=== PATIENT | female | born 1990 | race Caucasian/White ===

== ENCOUNTER 2016-11-15 12:54 | Inpatient (IN) | payer OTHER ==
[2016-11-15 14:53] VITALS: BMI 32.9
--- NOTE | 2016-11-15 16:32 | HP ---
COWS - Scale Resting Pulse: 1= [place] 81-100 Sweatin=Flushed/Facial Moisture Restless Observation: 1= Difficult to Sit Still Pupil Size: 1= Pupils >than Normal Bone or Joint Aches: 2= Severe Diffuse Aches Runny Nose/ Eye Tearin= Nasal Congestion GI Upset > 30mins: 2= Nausea/Diarrhea Tremor Observation: 2= Slight Tremor Visible Yawning Observation: 0= None Anxiety or Irritability: 2=Irritable/Anxious Goose Flesh Skin: 3=Piloerection COWS Score: 17 Admission ROS BHS - HPI Chief Complaint: I need to get off opioids and i need help. History of Present Illness: 25 y/o f pt with h/o opioid dep seeking detox. Exam Limitations: No Limitations - Ebola screening Have you traveled outside of the country in the last 21 days: No Have you had contact with anyone from an Ebola affected area: No Have you been sick,other than usual withdrawal symptoms: No Do you have a fever: No - Review of Systems Constitutional: Loss of Appetite, Malaise, Night Sweats, Changes in sleep, Unintentional Wgt. Loss (15 -20 lbs wt loss x 1 month) EENT: reports: Nose Congestion, Other (has corrective lenses with her) Respiratory: reports: No Symptoms reported Cardiac: reports: No Symptoms Reported GI: reports: Nausea, Poor Appetite, Indigestion : reports: No Symptoms Reported Musculoskeletal: reports: Muscle Pain Integumentary: reports: No Symptoms Reported Neuro: reports: Headache Endocrine: reports: No Symptoms Reported Hematology: reports: No Symptoms Reported Psychiatric: reports: Agitated, Anxious, Depressed Other Systems: Reviewed and Negative Patient History - Patient Medical History Hx Anemia: No Hx Asthma: No Hx Chronic Obstructive Pulmonary Disease (COPD): No Hx Cancer: No Hx Cardiac Disorders: No Hx Congestive Heart Failure: No Hx Hypertension: No Hx Hypercholesterolemia: No Hx Pacemaker: No HX Cerebrovascular Accident: No Hx Seizures: No Hx Dementia: No Hx Diabetes: No Hx Gastrointestinal Disorders: No Hx Liver Disease: No Hx Genitourinary Disorders: No Hx Sexually Transmitted Disorders: No Hx Renal Disease (ESRD): No Hx Thyroid Disease: No Hx Human Immunodeficiency Virus (HIV): Yes (negative 2014) Hx Hepatitis C: No Hx Depression: Yes (anxiety) Hx Suicide Attempt: Yes (cutter ) Hx Bipolar Disorder: No Hx Schizophrenia: No - Patient Surgical History Hx Section: Yes (x 2 ) Other Surgical History: 2008- s/p bariatric surgery Anesthesia Reaction: No - PPD History Previous Implant?: Yes Documented Results: Positive w/o proof PPD to be Administered?: No - Reproductive History Patient is a Female of Child Bearing Age (11 -55 yrs old): Yes Last Menstrual Period: 10/30/16 Patient : No - Smoking Cessation Smoking history: Never smoked Have you smoked in the past 12 months: No Aproximately how many cigarettes per day: 0 Cigars Per Day: 0 Hx Chewing Tobacco Use: No Initiated information on smoking cessation: No 'Breaking Loose' booklet given: 11/15/16 - Substance & Tx. History Hx Alcohol Use: No Hx Substance Use: Yes Substance Use Type: Opiates Hx Substance Use Treatment: No - Substances Abused percocet 10/325 Route: Oral Frequency: Daily Amount used: 5-6 /d Age of first use: 21 Date of Last Use: 11/15/16 dee dee 15 mg Route: Oral Frequency: Daily Amount used: 3-4 /d Age of first use: 22 Date of Last Use: 11/11/16 Family Disease History - Family Disease History Family History: Denies (pt was adopted) Admission Physical Exam BHS - Vital Signs Vital Signs: Vital Signs - 24 hr 11/15/16 14:47 Temperature 98.2 F Pulse Rate 99 H Respiratory 18 Rate Blood Pressure 129/76 25 y/o f pt aox3 in nad,with nasal congestion ambulating , cooperating with exam - Physical General Appearance: Yes: Tremorous, Sweating, Anxious HEENTM: Yes: EOMI, Hearing grossly Normal, Normocephalic, Normal Voice, DANNIE, Nasal Congestion Respiratory: Yes: Chest Non-Tender, Lungs Clear, Normal Breath Sounds, No Respiratory Distress Neck: Yes: Supple, Trachea in good position Breast: Yes: Breast Exam Deferred Cardiology: Yes: Regular Rhythm, Regular Rate, S1, S2 Abdominal: Yes: Non Tender, Soft, Increased Bowel Sounds Genitourinary: Yes: Within Normal Limits Back: Yes: Decreased Range of Motion Musculoskeletal: Yes: Back pain, Joint Stiffness, Muscle Pain (left posterior shoulder) Extremities: Yes: Tremors (mild) Neurological: Yes: cementer helper II-XII NML intact, Fully Oriented, Alert, Motor Strength 5/5, Normal Response Integumentary: Yes: Diaphoresis, Moist Lymphatic: Yes: Within Normal Limits - Diagnostic (1) Opioid dependence with withdrawal Current Visit: Yes Status: Chronic (2) Anxiety Current Visit: Yes Status: Chronic (3) Depression Current Visit: Yes Status: Chronic Qualifiers: Depression Type: unspecified Qualified Code(s): F32.9 - Major depressive disorder, single episode, unspecified Cleared for Admission [facility] - Detox or Rehab [facility] Level of Care: Medically Managed Detox Regimen/Protocol: Methadone [facility] Breath Alcohol Content Breath Alcohol Content: 0 Urine Pregancy Test - Result Urine Test Results: Negative- NO Line Present Urine Drug Screen - Results Drug Screen Negative: No Urine Drug Screen Results: TCA-Tricyclic Antidepress, OXY-Oxycodone
[2016-11-15] MEDS ORDERED: P-EPHED 60MG/TRIPROLIDI 2.5MG TABLET PO PRN (17:05)
[2016-11-15] MEDS ORDERED: MENTHOL/PHENOL 1 EACH UD MM PRN (17:05)
[2016-11-15] MEDS ORDERED: MAGNESIUM HYDROX 2400MG/30ML ORAL SUSPENSION 30 ML CUP PO PRN (17:05)
[2016-11-15] MEDS ORDERED: guaiFENesin/D-METHORPHAN HB 10 ML UNIT-DOSE CUPS PO PRN (17:05)
[2016-11-15] MEDS ORDERED: LOPERAMIDE HCL 2 MG CAPSULE PO PRN (17:05)
[2016-11-15] MEDS ORDERED: MAGNESIUM CITRATE 300 ML BOTTLE PO PRN (17:05)
[2016-11-15] MEDS ORDERED: METHADONE HCL 10 MG TABLET (FOR DETOX USE ONLY) PO ONE ×2 (18:15→23:00)
[2016-11-15] MEDS: diazePAM 5 MG TABLET PO PRN ×2 (18:34→23:32)
[2016-11-15] MEDS: IBUPROFEN 400 MG TABLET (FP) PO PRN (18:36)
[2016-11-15] MEDS: THIAMINE HCL 100 MG TABLET (FP) PO SCH (22:28)
[2016-11-15 22:58] LABS: URINE APPEARANCE CLEAR; URINE BILIRUBIN NEGATIVE (NEGATIVE); URINE BLOOD NEGATIVE (NEGATIVE); URINE COLOR LTYELLOW; URINE GLUCOSE (UA) NEGATIVE (NEGATIVE); URINE KETONE NEGATIVE (NEGATIVE); URINE LEUK ESTERASE NEGATIVE (NEGATIVE); URINE NITRITE NEGATIVE (NEGATIVE); URINE PROTEIN NEGATIVE (NEGATIVE); URINE UROBILINOGEN NEGATIVE E.U./dl (0.2-1.0)
[2016-11-16] MEDS: diazePAM 5 MG TABLET PO PRN ×5 (05:33→23:45)
[2016-11-16] MEDS: IBUPROFEN 400 MG TABLET (FP) PO PRN ×2 (05:33→18:01)
[2016-11-16] MEDS: MAG HYDROX/AL HYDROX/SIMETH 30 ML UNIT-DOSE CUP PO PRN ×2 (07:22→20:33)
--- NOTE | 2016-11-16 09:51 | PN ---
BHS COWS - Scale Resting Pulse: 0= [place] 80 or Below Sweatin= Chills/Flushing Restless Observation: 3= Extraneous Movement Pupil Size: 1= Pupils >than Normal Bone or Joint Aches: 2= Severe Diffuse Aches Runny Nose/ Eye Tearin= Runny Nose/Eyes GI Upset > 30mins: 3= Vomiting/Diarrhea Tremor Observation of Outstretched Hands: 2= Slight Tremor Visible Yawning Observation: 1= 1-2x During Session Anxiety or Irritability: 2=Irritable/Anxious Goose Flesh Skin: 0=Smooth Skin COWS Score: 17 S Progress Note (SOAP) Subjective: ALERT,IRRITABLE,ANXIOUS,INTERRUPTED SLEEP,TREMOR,PAIN IN THE BODY AND BACK Objective: 11/16/16 09:49 Vital Signs Temperature 97.4 F L 11/16/16 06:19 Pulse Rate 89 11/16/16 06:19 Respiratory Rate 20 11/16/16 06:19 Blood Pressure 115/70 11/16/16 06:19 O2 Sat by Pulse Oximetry (%) EKG NSR,NORMAL ECG Laboratory Last Values Urine Color Ltyellow 11/15/16 22:40 Urine Appearance Clear 11/15/16 22:40 Urine pH 6.0 (5.0-8.0) 11/15/16 22:40 Ur Specific [place] 1.020 (1.001-1.035) 11/15/16 22:40 Urine Protein Negative (NEGATIVE) 11/15/16 22:40 Urine Glucose (UA) Negative (NEGATIVE) 11/15/16 22:40 Urine Ketones Negative (NEGATIVE) 11/15/16 22:40 Urine Blood Negative (NEGATIVE) 11/15/16 22:40 Urine Nitrite Negative (NEGATIVE) 11/15/16 22:40 Urine Bilirubin Negative (NEGATIVE) 11/15/16 22:40 Urine Urobilinogen Negative E.U./dl (0.2-1.0) 11/15/16 22:40 Ur Leukocyte Esterase Negative (NEGATIVE) 11/15/16 22:40 LABS PENDING Assessment: 11/16/16 09:50 WITHDRAWAL SYMPTOM Plan: CONTINUE DETOX
[2016-11-16] MEDS ORDERED: METHADONE HCL 10 MG TABLET (FOR DETOX USE ONLY) PO ONE (10:00)
[2016-11-16] MEDS: PRENATAL VITAMINS W/ FOLIC ACID TABLET (FP) PO SCH (10:25)
[2016-11-16 10:28] LABS: MCH 28.6 pg (25.7-33.7); MCHC 32.6 g/dl (32.0-36.0); MEAN CELL VOLUME 87.7 fl (80-96); MEAN PLT VOLUME 9.1 fl (7.5-11.1); PLATELET COUNT 426 K/MM3 (134-434); RDW 15.5 % (11.6-15.6)
[2016-11-16 10:37] LABS: ALBUMIN 4.3 g/dl (3.4-5.0); CALCIUM 9.2 mg/dL (8.5-10.1)
[2016-11-16 10:44] LABS: ALK PHOS 73 U/L (45-117); ANION GAP 6 (8-16); BILIRUBIN,TOTAL 0.5 mg/dL (0.2-1.0); CO2 28 mmol/L (21-32); CREATININE 0.7 mg/dL (0.55-1.02); GLUCOSE,RANDOM 77 mg/dL (74-106); SGOT/AST 8 U/L (15-37); SGPT/ALT 17 U/L (12-78); TOT PROT 7.5 g/dl (6.4-8.2)
[2016-11-16] MEDS: CYCLOBENZAPRINE HCL 10 MG TABLET (FP) PO PRN ×2 (11:06→23:45)
[2016-11-16] MEDS: hydrOXYzine PAMOATE 25 MG CAPSULE (FP) PO PRN ×2 (11:06→20:59)
[2016-11-16] MEDS: LIDOCAINE 5% TOPICAL PATCH TP SCH (11:06)
--- NOTE | 2016-11-16 12:36 | EKG ---
Test Reason : Blood Pressure : / mmHG Vent. Rate : 084 BPM Atrial Rate : 084 BPM P-R Int : 142 ms QRS Dur : 080 ms QT Int : 376 ms P-R-T Axes : 060 030 029 degrees QTc Int : 444 ms NORMAL SINUS RHYTHM NORMAL ECG NO PREVIOUS ECGS AVAILABLE Confirmed by KALYAN REIS MD ([id number]) on 11/16/2016 12:36:05 PM Referred By: Confirmed By:KALYAN REIS MD
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
[2016-11-16] MEDS: THIAMINE HCL 100 MG TABLET (FP) PO SCH (22:36)
[2016-11-17] MEDS: diazePAM 5 MG TABLET PO PRN ×5 (03:21→23:05)
[2016-11-17] MEDS: ACETAMINOPHEN 325 MG TABLET (FP) PO PRN ×2 (03:21→14:44)
[2016-11-17] MEDS: CYCLOBENZAPRINE HCL 10 MG TABLET (FP) PO PRN ×2 (06:10→18:54)
[2016-11-17] MEDS: hydrOXYzine PAMOATE 25 MG CAPSULE (FP) PO PRN ×4 (06:10→21:33)
[2016-11-17] MEDS: METHYLPHENIDATE HCL 5 MG TABLET PO SCH ×2 (07:58→11:06)
[2016-11-17] MEDS ORDERED: METHADONE HCL 5 MG TABLET (FOR DETOX USE ONLY) PO ONE (10:00)
--- NOTE | 2016-11-17 10:00 | PN ---
S COWS - Scale Resting Pulse: 1= [place] 81-100 Sweatin= Chills/Flushing Restless Observation: 3= Extraneous Movement Pupil Size: 1= Pupils >than Normal Bone or Joint Aches: 2= Severe Diffuse Aches Runny Nose/ Eye Tearin= Runny Nose/Eyes GI Upset > 30mins: 2= Nausea/Diarrhea Tremor Observation of Outstretched Hands: 2= Slight Tremor Visible Yawning Observation: 1= 1-2x During Session Anxiety or Irritability: 2=Irritable/Anxious Goose Flesh Skin: 0=Smooth Skin COWS Score: 17 S Progress Note (SOAP) Subjective: ALERT,IRRITABLE,ANXIOUS,INTERRUPTED SLEEP,PAIN IN BODY AND JOINT Objective: 11/17/16 09:58 11/17/16 09:58 Vital Signs Temperature 97.7 F 11/17/16 06:00 Pulse Rate 81 11/17/16 06:00 Respiratory Rate 18 11/17/16 06:00 Blood Pressure 114/76 11/17/16 06:00 O2 Sat by Pulse Oximetry (%) Laboratory Last Values WBC 13.0 K/mm3 (4.0-10.0) H 11/16/16 06:00 RBC 4.17 M/mm3 (3.60-5.2) 11/16/16 06:00 Hgb 11.9 GM/dL (10.7-15.3) 11/16/16 06:00 Hct 36.6 % (32.4-45.2) 11/16/16 06:00 MCV 87.7 fl (80-96) 11/16/16 06:00 MCHC 32.6 g/dl (32.0-36.0) 11/16/16 06:00 RDW 15.5 % (11.6-15.6) 11/16/16 06:00 Plt Count 426 K/MM3 (134-434) 11/16/16 06:00 MPV 9.1 fl (7.5-11.1) 11/16/16 06:00 Sodium 138 mmol/L (136-145) 11/16/16 06:00 Potassium 4.6 mmol/L (3.5-5.1) 11/16/16 06:00 Chloride 104 mmol/L (98-107) 11/16/16 06:00 Carbon Dioxide 28 mmol/L (21-32) 11/16/16 06:00 Anion Gap 6 (8-16) L 11/16/16 06:00 BUN 13 mg/dL (7-18) 11/16/16 06:00 Creatinine 0.7 mg/dL (0.55-1.02) 11/16/16 06:00 Creat Clearance w eGFR > 60 (>60) 11/16/16 06:00 Random Glucose 77 mg/dL (74-106) 11/16/16 06:00 Calcium 9.2 mg/dL (8.5-10.1) 11/16/16 06:00 Total Bilirubin 0.5 mg/dL (0.2-1.0) 11/16/16 06:00 AST 8 U/L (15-37) L 11/16/16 06:00 ALT 17 U/L (12-78) 11/16/16 06:00 Alkaline Phosphatase 73 U/L (45-117) 11/16/16 06:00 Total Protein 7.5 g/dl (6.4-8.2) 11/16/16 06:00 Albumin 4.3 g/dl (3.4-5.0) 11/16/16 06:00 Urine Color Ltyellow 11/15/16 22:40 Urine Appearance Clear 11/15/16 22:40 Urine pH 6.0 (5.0-8.0) 11/15/16 22:40 Ur Specific [place] 1.020 (1.001-1.035) 11/15/16 22:40 Urine Protein Negative (NEGATIVE) 11/15/16 22:40 Urine Glucose (UA) Negative (NEGATIVE) 11/15/16 22:40 Urine Ketones Negative (NEGATIVE) 11/15/16 22:40 Urine Blood Negative (NEGATIVE) 11/15/16 22:40 Urine Nitrite Negative (NEGATIVE) 11/15/16 22:40 Urine Bilirubin Negative (NEGATIVE) 11/15/16 22:40 Urine Urobilinogen Negative E.U./dl (0.2-1.0) 11/15/16 22:40 Ur Leukocyte Esterase Negative (NEGATIVE) 11/15/16 22:40 RPR Titer Nonreactive (NONREACTIVE) 11/16/16 06:00 Assessment: 11/17/16 09:59 WITHDRAWAL SYMPTOM Plan: CONTINUE DETOX,WBC 13,000 PROBABLY DEHYDRATION,ENCOURAGE ORAL FLUID,REPEAT CBC IN AM
--- NOTE | 2016-11-17 10:03 | PN ---
BHS Progress Note Note: PATIENT REQUESTED PSYCHIATRIC EVALUATION
[2016-11-17] MEDS: PRENATAL VITAMINS W/ FOLIC ACID TABLET (FP) PO SCH (11:05)
[2016-11-17] MEDS: SERTRALINE HCL 50 MG TABLET (FP) PO SCH (11:06)
[2016-11-17] MEDS: LIDOCAINE 5% TOPICAL PATCH TP SCH (11:08)
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
[2016-11-17] MEDS: IBUPROFEN 400 MG TABLET (FP) PO PRN (21:33)
[2016-11-17] MEDS: THIAMINE HCL 100 MG TABLET (FP) PO SCH (21:34)
[2016-11-17] MEDS: diphenhydrAMINE HCL 50 MG CAPSULE PO PRN (23:06)
[2016-11-18] MEDS: hydrOXYzine PAMOATE 25 MG CAPSULE (FP) PO PRN ×2 (01:12→07:51)
[2016-11-18] MEDS: diazePAM 5 MG TABLET PO PRN ×3 (06:21→15:17)
[2016-11-18] MEDS: CYCLOBENZAPRINE HCL 10 MG TABLET (FP) PO PRN ×2 (06:23→17:16)
[2016-11-18] MEDS: IBUPROFEN 400 MG TABLET (FP) PO PRN (07:49)
[2016-11-18] MEDS: METHYLPHENIDATE HCL 5 MG TABLET PO SCH ×2 (07:49→11:29)
[2016-11-18 09:18] LABS: MCH 28.9 pg (25.7-33.7); MCHC 32.9 g/dl (32.0-36.0); MEAN CELL VOLUME 87.9 fl (80-96); MEAN PLT VOLUME 9.2 fl (7.5-11.1); PLATELET COUNT 363 K/MM3 (134-434); RDW 15.2 % (11.6-15.6)
[2016-11-18] MEDS ORDERED: METHADONE HCL 5 MG TABLET (FOR DETOX USE ONLY) PO ONE (10:00)
[2016-11-18] MEDS: PRENATAL VITAMINS W/ FOLIC ACID TABLET (FP) PO SCH (10:42)
[2016-11-18] MEDS: SERTRALINE HCL 50 MG TABLET (FP) PO SCH (10:42)
[2016-11-18] MEDS: LIDOCAINE 5% TOPICAL PATCH TP SCH (10:44)
--- NOTE | 2016-11-18 11:38 | PN ---
S Progress Note (SOAP) Subjective: ALERT,IRRITABLE,ANXIOUS,INTERRUPTED SLEEP Objective: 11/18/16 11:37 Vital Signs Temperature 97.7 F 11/18/16 10:00 Pulse Rate 111 H 11/18/16 10:00 Respiratory Rate 20 11/18/16 10:00 Blood Pressure 128/78 11/18/16 10:00 O2 Sat by Pulse Oximetry (%) Assessment: 11/18/16 11:38 WITHDRAWAL SYMPTOM Plan: CONTINUE DETOX
[2016-11-18] MEDS: ACETAMINOPHEN 325 MG TABLET (FP) PO PRN ×2 (15:18→21:27)
[2016-11-18] MEDS: hydrOXYzine PAMOATE 50 MG CAPSULE (FP) PO PRN ×2 (17:16→21:27)
[2016-11-18] MEDS: THIAMINE HCL 100 MG TABLET (FP) PO SCH (21:25)
[2016-11-18] MEDS: MAG HYDROX/AL HYDROX/SIMETH 30 ML UNIT-DOSE CUP PO PRN (21:30)
[2016-11-19] MEDS: hydrOXYzine PAMOATE 50 MG CAPSULE (FP) PO PRN ×5 (01:03→19:26)
[2016-11-19] MEDS: CYCLOBENZAPRINE HCL 10 MG TABLET (FP) PO PRN ×3 (01:03→22:31)
[2016-11-19] MEDS: IBUPROFEN 400 MG TABLET (FP) PO PRN ×3 (01:04→18:19)
[2016-11-19] MEDS: ACETAMINOPHEN 325 MG TABLET (FP) PO PRN ×3 (04:14→20:21)
[2016-11-19] MEDS: METHYLPHENIDATE HCL 5 MG TABLET PO SCH ×2 (07:18→12:06)
[2016-11-19] MEDS ORDERED: METHADONE HCL 10 MG TABLET (FOR DETOX USE ONLY) PO ONE (10:00)
--- NOTE | 2016-11-19 10:03 | PN ---
[facility] Progress Note Note: patient was seen, she needs her medications for discharge , reviewed chart, patient was seen by , currently on Wellbutrin, Ritalin and Zoloft, medications well tolerated, patient was explaned that Zoloft and Wellbutrin will be transfer to the pharmacy and for Ritalin she needs to see her psychiatrist.
--- NOTE | 2016-11-19 10:13 | PN ---
S Progress Note (SOAP) Subjective: ALERT,IRRITABLE,ANXIOUS,INTERRUPTED SLEEP Objective: 11/19/16 10:11 Vital Signs Temperature 96.8 F L 11/19/16 09:51 Pulse Rate 85 11/19/16 09:51 Respiratory Rate 18 11/19/16 09:51 Blood Pressure 129/77 11/19/16 09:51 O2 Sat by Pulse Oximetry (%) Assessment: 11/19/16 10:12 WITHDRAWAL SYMPTOM Plan: CONTINUE DETOX,DISCHARGE IN AM
[2016-11-19] MEDS: PRENATAL VITAMINS W/ FOLIC ACID TABLET (FP) PO SCH (10:18)
[2016-11-19] MEDS: SERTRALINE HCL 50 MG TABLET (FP) PO SCH (10:18)
[2016-11-19] MEDS: LIDOCAINE 5% TOPICAL PATCH TP SCH (11:23)
[2016-11-19] MEDS: LIDOCAINE VISCOUS 2% ORAL/TOP 100 ML BOTTLE MM PRN (17:07)
--- NOTE | 2016-11-19 20:36 | PN ---
[facility] Progress Note Note: RECEIVED NURSE CALL PATIENT HAS PTSD WANTS SLEEPING MED RECOMMEND DISCUSS WITH PSYCHIATRIST FOR PSYCHOTROPIC MODIFICATION CONTINUE DETOX
[2016-11-19] MEDS: diphenhydrAMINE HCL 50 MG CAPSULE PO PRN (22:31)
[2016-11-19] MEDS: THIAMINE HCL 100 MG TABLET (FP) PO SCH (22:32)
[2016-11-20] MEDS: hydrOXYzine PAMOATE 50 MG CAPSULE (FP) PO PRN ×2 (01:00→05:26)
[2016-11-20] MEDS: IBUPROFEN 400 MG TABLET (FP) PO PRN (01:01)
[2016-11-20] MEDS: LIDOCAINE VISCOUS 2% ORAL/TOP 100 ML BOTTLE MM PRN ×2 (01:04→07:22)
[2016-11-20] MEDS: ACETAMINOPHEN 325 MG TABLET (FP) PO PRN (05:26)
[2016-11-20] MEDS ORDERED: METHADONE HCL 5 MG TABLET (FOR DETOX USE ONLY) PO ONE (06:00)
[2016-11-20] MEDS: METHYLPHENIDATE HCL 5 MG TABLET PO SCH (07:35)
--- NOTE | 2016-11-20 08:49 | DS ---
[facility] Detox Discharge Summary Admission Date: 11/15/16 Discharge Date: 11/20/16 - History Present History: Opioid Dependence - Physical Exam Results Vital Signs: Vital Signs Temperature 98.1 F 11/20/16 06:45 Pulse Rate 107 H 11/20/16 06:45 Respiratory Rate 20 11/20/16 06:45 Blood Pressure 124/75 11/20/16 06:45 O2 Sat by Pulse Oximetry (%) - Treatment Hospital Course: Detox Protocol Followed, Detoxed Safely, Responded well, Discharged Condition Good - Medication Discharge Medications: Ambulatory Orders Buspirone HCl [Buspar -] 10 mg PO DAILY 11/15/16 Bupropion HCl [Wellbutrin Xl -] 150 mg PO DAILY #30 tab.sr.24h 11/19/16 Sertraline HCl [Zoloft -] 50 mg PO DAILY #30 tablet 11/19/16 - Diagnosis (1) Opioid dependence with withdrawal Current Visit: Yes Status: Chronic (2) Anxiety Current Visit: Yes Status: Chronic (3) Depression Current Visit: Yes Status: Chronic Qualifiers: Depression Type: unspecified Qualified Code(s): F32.9 - Major depressive disorder, single episode, unspecified - AMA Did Patient Leave Against Medical Advice: No
[2016-11-20] MEDS: SERTRALINE HCL 50 MG TABLET (FP) PO SCH (09:25)
[2016-11-20] MEDS: PRENATAL VITAMINS W/ FOLIC ACID TABLET (FP) PO SCH (09:25)
[2016-11-20 10:07] VITALS: BP 136/85; PULSE 111; TEMP 98.6
== END 2016-11-20 10:30 | disposition home or self-care (01) | DRG 773 ==
LOC: YASAS 12:54 → Y6N 18:02
PROVIDERS: ADMIT Internal Medicine Addiction Medicine; ATTEND Internal Medicine Addiction Medicine
PROC: HZ2ZZZZ Detoxification Services for Substance Abuse Treatment (ICD-10-PCS; principal; 2016-11-15)
DX: F11.23 Opioid dependence with withdrawal (principal); F41.9 Anxiety disorder, unspecified; F32.9 Major depressive disorder, single episode, unspecified; F43.10 Post-traumatic stress disorder, unspecified; F90.9 Attention-deficit hyperactivity disorder, unspecified type; E86.0 Dehydration; Z91.5 Personal history of self-harm; Z98.84 Bariatric surgery status
CPT/HCPCS: 36415; 71020-TC; 80053; 81003; 85027; 86593; 93005; 93010